=== PATIENT | female | born 1980 | race Two or more races ===

== ENCOUNTER → 2019-06-30 | Outpatient (CLI) | payer OTHER ==
[2019-06-30] MEDS: IOHEXOL 240 MG/ML 50ML VIAL. PO ONE (10:45)
[2019-06-30] MEDS: IOHEXOL 300 MG/ML 100ML VIAL. IV ONE (10:45)
--- NOTE | 2019-06-30 11:51 | KCIC ---
Examination: CT ABD PELV W/ORAL IV CONTRAST History: Left lower quadrant pain, bloating, indigestion, diverticular disease Comparison/Correlation: None Findings: Axial images of the abdomen and pelvis were obtained following IV and oral contrast. Sagittal and coronal reformatted images were provided. Lung bases are clear. Diffuse fatty infiltration of the liver is present. Spleen, pancreas, adrenal glands, and left kidney are normal. Right renal superior pole cyst measuring 1.2 cm diameter is present. The gallbladder fossa is unremarkable. No extraluminal gas. No bowel obstruction. Appendix is normal. Moderate quantity of stool in the colon is present. There is no definite inflammatory finding about the colon. No loculated collection. Small adnexal follicles are present in physiologic in appearance. 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 Bony structures are unremarkable. There is a very small umbilical hernia containing fat. Impression: Fatty infiltration of the liver. No acute inflammatory process. PQRS Compliance Statement: One or more of the following individualized dose reduction techniques were utilized for this examination: 1. Automated exposure control 2. Adjustment of the mA and/or kV according to patient size 3. Use of iterative reconstruction technique Electronically signed by: Oni Marino MD (06/30/2019 11:48 AM) [id number]
== END | disposition home or self-care (01) ==
LOC: KCIC CT 08:43
PROVIDERS: ATTEND Family Medicine
DX: K76.0 Fatty (change of) liver, not elsewhere classified (principal); N28.1 Cyst of kidney, acquired; K42.9 Umbilical hernia without obstruction or gangrene
CPT/HCPCS: 74177; Q9966; Q9967